=== PATIENT | male | born 1970 | race Caucasian/White ===

== ENCOUNTER 2018-10-09 18:45 | Emergency (ER) | payer BC ==
[2018-10-09] MEDS ORDERED: Bacitracin Oint 1 GM U/D Packet TOP ONE (19:16)
--- NOTE | 2018-10-09 19:18 | EDM.PDOC ---
ED HPI GENERAL MEDICAL PROBLEM - General Chief Complaint: Laceration Stated Complaint: LACERATION ON LEFT LEG Time Seen by Provider: 10/09/18 19:25 Source of Information: Reports: Patient History Limitations: Reports: No Limitations - History of Present Illness INITIAL COMMENTS - FREE TEXT/NARRATIVE: pt was cleaning small mouth sams and the fillet knife slipped and he ended up with a puncture wound in the left thigh. This is not swoolen and is not actively bleeding. He is current with his tetanus. Onset: Today, Sudden Duration: Hour(s): Location: Reports: Lower Extremity, Left Associated Symptoms: Reports: No Other Symptoms - Related Data Allergies Allergy/AdvReac Type Severity Reaction Status Date / Time No Known Allergies Allergy Verified 10/09/18 19:10 Home Meds: Home Meds Naproxen Sodium [Aleve] 440 mg PO DAILY 10/09/18 [History] Social & Family History - Tobacco Use Smoking Status *Q: Never Smoker - Caffeine Use Caffeine Use: Reports: Coffee - Recreational Drug Use Recreational Drug Use: No ED ROS GENERAL - Review of Systems Review Of Systems: See Below Constitutional: Reports: No Symptoms HEENT: Reports: No Symptoms Respiratory: Reports: No Symptoms Cardiovascular: Reports: No Symptoms Endocrine: Reports: No Symptoms GI/Abdominal: Reports: No Symptoms : Reports: No Symptoms Musculoskeletal: Reports: Other (pt has a puncture wound to the thigh. This is about 1/8 inch in length. ) ED EXAM, SKIN/RASH Exam: See Below Text/Narrative:: pt has a puncture wound to the left thigh Exam Limited By: No Limitations General Appearance: Alert, Anxious Extremities: Other (pt has a puncture wund to left thigh about 1/8 inch in lenth. It was not actiovely bleeding. ) Neurological: Alert, Oriented Course - Vital Signs Last Recorded V/S: Last Vital Signs Temp 35.9 C 10/09/18 19:11 Pulse 60 10/09/18 19:11 Resp 16 10/09/18 19:11 BP 110/77 10/09/18 19:11 Pulse Ox 96 10/09/18 19:11 - Orders/Labs/Meds Meds: Medications Discontinued Medications Generic Name Dose Route Start Last Admin Trade Name Freq PRN Reason Stop Dose Admin Bacitracin 1 dose 10/09/18 19:16 10/09/18 19:22 Bacitracin Oint 1 Gm TOP 10/09/18 19:17 1 dose ONETIME ONE Administration - Re-Assessments/Exams Free Text/Narrative Re-Assessment/Exam: 10/09/18 19:30 wound was cleaned well dressed with bacatracin. He is current with tetanus. Departure - Departure Time of Disposition: 19:17 Disposition: Home, Self-Care 01 Condition: Fair Clinical Impression: Puncture wound - Discharge Information Instructions: Puncture Wound Referrals: PCP,None [Primary Care Provider] - Forms: ED Department Discharge Care Plan Goals: keep covered and clean, use bacatracin on the wound, keflex 500mg tid for 5 days
== END 2018-10-09 19:29 | disposition home or self-care (01) ==
LOC: JP.ED 18:45
DX: S71.132A Puncture wound without foreign body, left thigh, initial encounter (principal); W26.0XXA Contact with knife, initial encounter; Z79.899 Other long term (current) drug therapy
CPT/HCPCS: 99282